=== PATIENT | female | born 1955 ===

== ENCOUNTER 2016-11-01 13:18 | Emergency (ER) | payer MEDICARE, MEDICAID ==
[2016-11-01 14:17] VITALS: BP 201/105
[2016-11-01] MEDS ORDERED: Cyclobenzaprine 10 MG Tab PO ONE (14:52)
[2016-11-01] MEDS ORDERED: Ibuprofen 600 MG Tab PO ONE (14:53)
--- NOTE | 2016-11-01 14:55 | EDM.PDOC ---
ED HPI GENERAL MEDICAL PROBLEM - General Chief Complaint: Headache Stated Complaint: CONCUSSION SYMPTOMS Time Seen by Provider: 11/01/16 14:23 Source of Information: Reports: Patient History Limitations: Reports: No Limitations - History of Present Illness INITIAL COMMENTS - FREE TEXT/NARRATIVE: 61 yo present to ER with headache post being hit in head. 3 days prior pt was walking in house and right knee "gave out" she lost her balance and hit head on wall. She was seen by her primary care provider neuro evaluation was normal per pt. yesterday pt was sitting with grandson and he hit his head into the same area of the left side of her head that she had previously hit. She states that her vision went dark and she became nauseated. She has had pain in right side of her head and a stiff neck since yesterday. she has scheduled opiods for chronic pain and states that these have taken the edge off pain but not resolved. Last dose was 3 hours prior to arrival. Denies current nausea. She has not vomited. Denies fever, chills, or generally ill - Related Data Allergies Allergy/AdvReac Type Severity Reaction Status Date / Time amoxicillin Allergy Cannot Verified 11/01/16 14:21 Remember aspirin Allergy Hives Verified 11/01/16 14:21 codeine Allergy Hives Verified 11/01/16 14:21 Iodinated Contrast Media - Allergy Itching Verified 11/01/16 14:21 Oral and [Iodinated Contrast Media - IV Dye] Home Meds: Home Meds Anastrozole [Arimidex] 1 mg PO DAILY 12/07/15 [History] Diclofenac Epolamine [Flector] 1 patch TOP Q6H PRN 12/07/15 [History] Hydrochlorothiazide 25 mg PO DAILY 12/07/15 [History] Hydrocodone/Acetaminophen [[place] 10-325] 1 tab PO QID PRN 12/07/15 [History] Lidocaine 1 patch TOP Q12H PRN 12/07/15 [History] Lisinopril 40 mg PO DAILY 12/07/15 [History] Venlafaxine [Effexor XR] 75 mg PO DAILY 12/07/15 [History] amLODIPine [Norvasc] 2.5 mg PO DAILY 12/07/15 [History] Magnesium Oxide [Magnesium Oxide] 1 tab PO DAILY 11/01/16 [History] oxyCODONE ER [OxyCONTIN] 1 tab PO TID 11/01/16 [History] Past Medical History HEENT History: Reports: Glaucoma Cardiovascular History: Reports: Hypertension Gastrointestinal History: Reports: GERD, Other (See Below) FLARE BREAKER History: Reports: Other (See Below) Other OB/BYN History: ovarian cyst Musculoskeletal History: Reports: Arthritis Psychiatric History: Reports: Depression Oncologic (Cancer) History: Reports: Breast - Past Surgical History GI Surgical History: Reports: Appendectomy, Bariatric Procedure, Cholecystectomy , Colonoscopy, EGD, Esophageal Dilatation Female Surgical History: Reports: Oophorectomy Musculoskeletal Surgical History: Reports: Shoulder Replacement Oncologic Surgical History: Reports: Mastectomy Other Oncologic Surgeries/Procedures: bilateral mastectomy Social & Family History - Tobacco Use Smoking Status *Q: Never Smoker - Recreational Drug Use Recreational Drug Use Frequency: Patient Refuses To Answer - Living Situation & Occupation Living situation: Reports: Single Occupation: Disabled ED ROS GENERAL - Review of Systems Review Of Systems: See Below Constitutional: Denies: Fever, Chills, Fatigue HEENT: Denies: Dental Pain, Sinus Problem Respiratory: Denies: Shortness of Breath, Wheezing Cardiovascular: Denies: Chest Pain GI/Abdominal: Denies: Abdominal Pain Neurological: Reports: Headache. Denies: Confusion, Dizziness Psychiatric: Reports: No Symptoms - Physical Exam Exam: See Below Exam Limited By: No Limitations General Appearance: Alert, WD/WN, No Apparent Distress Head Exam: Normocephalic, Scalp Tenderness (left temperal area, no ecchymosis or abrasion) Neck: Supple, Tender Lateral (paraspinal tenderness) Respiratory/Chest: Lungs Clear, Normal Breath Sounds. No: Crackles, Rhonchi, Wheezing Cardiovascular: Regular Rate, Rhythm GI/Abdominal: Soft, Non-Tender Psychiatric: Normal Affect, Normal Mood Skin Exam: Warm, Dry, Intact Course - Vital Signs Last Recorded V/S: Last Vital Signs Temp 37.2 C 11/01/16 14:33 Pulse 72 11/01/16 14:33 Resp 16 11/01/16 14:33 BP 201/105 H 11/01/16 14:33 Pulse Ox 98 11/01/16 14:33 - Orders/Labs/Meds Orders: Active Orders 24 hr Category Date Time Status Head wo Cont [CT] Stat Exams 11/01/16 14:50 Taken Meds: Medications Discontinued Medications Generic Name Dose Route Start Last Admin Trade Name Freq PRN Reason Stop Dose Admin Cyclobenzaprine HCl 10 mg 11/01/16 14:52 11/01/16 16:19 Flexeril PO 11/01/16 14:53 Not Given ONETIME ONE Ibuprofen 600 mg 11/01/16 14:53 11/01/16 16:19 Motrin PO 11/01/16 14:54 Not Given ONETIME ONE Ketorolac Tromethamine 30 mg 11/01/16 15:36 11/01/16 16:19 Toradol IM 11/01/16 15:37 Not Given ONETIME ONE Metaxalone 400 mg 11/01/16 15:36 11/01/16 16:19 Skelaxin PO 11/01/16 15:37 Not Given ONETIME ONE - Re-Assessments/Exams Free Text/Narrative Re-Assessment/Exam: 11/01/16 17:29 pt refused NSAID and muscle relaxers. She was offered many different options and stated "I can take those at home" She did have CT head. prior to getting CT results pt caught me in the pena stating she was going home because she wanted "stronger medication for her headache" encouraged her to stay until I received report from radiology and also encouraged her to try medications to help relieve her headache. Informed her that she could have bleeding in her head that could result in . She was unconcerned and stated that she was leaving. Since departure I have received results of normal CT head. Departure - Departure Time of Disposition: 16:30 Disposition: Against Medical Advice 07 Clinical Impression: Head injury Qualifiers: Encounter type: initial encounter Qualified Code(s): S09.90XA - Unspecified injury of head, initial encounter - Discharge Information Referrals: Leslie Souza MD [Primary Care Provider] - Forms: ED Department Discharge Additional Instructions: left AMA - My Orders Last 24 Hours: My Active Orders 11/01/16 14:50 Head wo Cont [CT] Stat - Assessment/Plan Last 24 Hours: My Active Orders 11/01/16 14:50 Head wo Cont [CT] Stat
[2016-11-01] MEDS ORDERED: Ketorolac 30 MG/ML SDV IM ONE (15:36)
== END 2016-11-01 16:21 | disposition left against medical advice (07) ==
LOC: JP.ED 13:18
DX: S09.90XA Unspecified injury of head, initial encounter (principal); I10 Essential (primary) hypertension; K21.9 Gastro-esophageal reflux disease without esophagitis; F32.9 Major depressive disorder, single episode, unspecified; Z85.3 Personal history of malignant neoplasm of breast; Z90.49 Acquired absence of other specified parts of digestive tract; Z98.84 Bariatric surgery status; Z90.721 Acquired absence of ovaries, unilateral; Z96.619 Presence of unspecified artificial shoulder joint; Z90.13 Acquired absence of bilateral breasts and nipples; Z98.890 Other specified postprocedural states; Z79.899 Other long term (current) drug therapy; Z88.1 Allergy status to other antibiotic agents; Z88.8 Allergy status to other drugs, medicaments and biological substances; Z88.5 Allergy status to narcotic agent; Z91.041 Radiographic dye allergy status; W01.198A Fall on same level from slipping, tripping and stumbling with subsequent striking against other object, initial encounter; Y92.009 Unspecified place in unspecified non-institutional (private) residence as the place of occurrence of the external cause
CPT/HCPCS: 70450; 96372; 99284; 99284-25